=== PATIENT | female | born 1950 | race Caucasian/White ===

== ENCOUNTER 2023-07-09 09:08 | Emergency (ER) | payer MEDICARE, OTHER, SELFPAY ==
[2023-07-09] VITALS (12 sets, daily range): BP systolic 131–162; BP diastolic 81–90; PULSE 98–110; RESP 12–23; TEMP 36.6; O2SAT 100
--- NOTE | ~2023-07-09 | XR_ITS ---
EXAMINATION: XR chest 2V DATE: 07/09/2023 09:49 INDICATION: Palpitations. TECHNIQUE: Frontal and lateral views of the chest were obtained. COMPARISON: None. FINDINGS: There is no pneumonia, pleural effusion, or pneumothorax. The heart size is normal. IMPRESSION: 1. No acute cardiopulmonary disease. Reviewed, dictated and finalized at location A.
--- NOTE | 2023-07-09 09:14 | ED.ARRPALP ---
HPI - Arrhythmia/Palpitations General Chief Complaint: Arrhythmia/Palpitations <Aleksandr Handy APRN - Last Filed: 07/09/23 11:24> Stated Complaint: palpitations <Aleksandr Handy APRN - Last Filed: 07/09/23 11:24> Time Seen by Provider: 07/09/23 09:14 <Aleksandr Handy APRN - Last Filed: 07/09/23 11:24> Source: patient <Aleksandr Handy APRN - Last Filed: 07/09/23 11:24> Mode of arrival: ambulatory <Aleksandr Handy APRN - Last Filed: 07/09/23 11:24> Limitations: no limitations <Aleksandr Handy APRN - Last Filed: 07/09/23 11:24> History of Present Illness HPI narrative: Nissa is a 72-year-old female patient presenting to the emergency room today with complaints of heart palpitations. She reports that this has been going on since June 14 where she has noticed an increase in heart rate on her Fitbit. States she has been under lot of stress at home and not being able to sleep due to her being ill and family related stress due to illnesses. States she is normally a pretty anxious person. No history of hypertension. Patient does not smoke or drink alcohol. Does see Dr. Gorman-rubber molder at [facility] for hyperlipidemia and takes rosuvastatin. Also has history of chronic kidney disease and vitamin-D deficiency. Denies any current chest pain or shortness of breath. States last night when she was trying to sleep she noticed feeling her heart rate beat more on her left side and had pulsatile tinnitus in the left ear. <Aleksandr Handy APRN - Last Filed: 07/09/23 11:24> Related Data Home Medications: Home Medications Medication Instructions Recorded Confirmed bimatoprost 0.01 % eye drops 1 drp EACH EYE DAILY 05/30/22 (Richie) rosuvastatin 5 mg tablet 5 mg PO DAILY 05/30/22 zolpidem 5 mg tablet 5 mg PO ONCE 05/30/22 <Aleksandr Handy APRN - Last Filed: 07/09/23 11:24> Allergies/Adverse Reactions: Allergies Allergy/AdvReac Type Severity Reaction Status Date / Time No Known Allergies Allergy Mild Verified 07/09/23 09:08 <Aleksandr Handy APRN - Last Filed: 07/09/23 11:24> Review of Systems Review of Systems: Pertinent positives per HPI. Patient denies any fever, chills, rash, headache, visual changes, dizziness, cough, runny nose, sore throat, shortness of breath, chest pain, nausea, vomiting, diarrhea, constipation, abdominal pain, or any urinary issues. <Aleksandr Handy APRN - Last Filed: 07/09/23 11:24> [facility] Past Medical History Medical History: Medical History CKD (chronic kidney disease) Hyperlipidemia, unspecified (Unknown) Vitamin D deficiency, unspecified <Aleksandr Handy APRN - Last Filed: 07/09/23 11:24> Surgical History Surgical History: Surgical History History of breast biopsy left 1998 History of lumbar surgery discectomy 1991 History of salpingo-oophorectomy right 08/15/2011 <Aleksandr Handy APRN - Last Filed: 07/09/23 11:24> Family History Family History: Family History Father Cerebrovascular accident Mother Dementia Hypothyroidism Grandparent Breast cancer <Aleksandr Handy APRN - Last Filed: 07/09/23 11:24> Social History Social History: Social History Smoking status: Former smoker Tobacco type: cigarettes Additional smoking assessment comments: Stopped smoking at 21 years Alcohol intake: current Drinks per week: 7 Alcohol use details: small glass of wine every night Substance use: never Substance use type: does not use Do You Feel Safe in your Home?: Yes Lack of Transportation: No Lack of Food: Never True Current Housing: I Have Housing Concerned About
--- NOTE | 2023-07-09 09:24 | ECG_ITS ---
Measurements Intervals [place] Rate: 103 P: 269 W[place]: 138 QRS: -2 QRSD: 81 T: -46 QT: 347 AVG RR: 579 QTc: 407 QTCB: 456 QTCF: 416 Interpretive Statements ECTOPIC ATRIAL TACHYCARDIA NONSPECIFIC ST & T WAVE ABNORMALITY ABNORMAL RHYTHM ECG SEE SCANNED COPY FOR SIGNATURE MTDD
[2023-07-09 09:37] LABS: Basophils Percent Auto 0.6 % (0.2-1.2); Eosinophils Percent Auto 0.8 % (0-4.4); Hematocrit 45.5 % (37.0-47.0); Hemoglobin 15.1 g/dL (12.0-15.0); Immature Granulocyte Absolute 0.01 K/mm3 (0.00-0.031); Immature Granulocyte Percent A 0.3 % (0-0.5); Lymphocytes Absolute Auto 1.31 K/mm3 (0.9-3.2); Lymphocytes Percent Auto 36.3 % (18.3-44.2); Mean Corpuscular HGB Conc 33.2 g/dl (32-36); Mean Corpuscular Volume 90.5 fl (80-100); Mean Platelet Volume 9.1 fl (7.4-10.4); Monocytes Absolute Auto 0.4 K/mm3 (0.1-0.6); Monocytes Percent Auto 11.1 % (2.6-8.5); Neutrophils Absolute Auto 1.8 K/mm3 (1.3-6.7); Neutrophils Percent Auto 50.9 % (45.5-73.1); Platelet Count Result 225 k/mm3 (150-375); Red Blood Count 5.03 M/mm3 (4.2-5.4); Red Cell Distribution Width 12.8 % (11.5-14.5); White Blood Count 3.6 K/mm3 (4.5-10.0)
[2023-07-09 09:49] LABS: INR 0.9; Prothrombin Time 12.5 Seconds (11.1-14.7)
[2023-07-09 09:50] LABS: Partial Thromboplastin Time 24.3 Seconds (22.3-36.8)
[2023-07-09 09:51] LABS: Alanine Aminotransferase 51 U/L (6-35); Albumin Level 4.9 g/dL (3.5-5.1); Alkaline Phosphatase 57 U/L (38-126); Anion Gap 9 mmol/L (4-12); Aspartate Amino Transferase 65 U/L (14-36); Bilirubin,Total 1.1 mg/dL (0.2-1.3); Blood Urea Nitrogen 17 mg/dL (7-17); Calcium 11.3 mg/dL (8.4-10.2); Carbon Dioxide 24 mmol/L (22-30); Chloride 109 mmol/L (98-107); Estimated CRCL calculation 53 ml/min; Estimated Glomerular Filt Rate > 60; Glucose 99 mg/dL (65-110); Sodium 142 mmol/L (137-145)
[2023-07-09 10:03] LABS: NT Pro B Type Natriuretic Pept 104 pg/mL (19.9-100); Troponin I < 0.012 ng/mL (0.000-0.034)
[2023-07-09 10:06] LABS: D Dimer 0.47 ug/mL (<0.48)
== END 2023-07-09 11:30 | disposition home or self-care (01) ==
PROVIDERS: Emergency Provider Nurse Practitioner Family; PCP Family Medicine
DX: R00.0 Tachycardia, unspecified (principal); F43.9 Reaction to severe stress, unspecified; F41.9 Anxiety disorder, unspecified; R00.2 Palpitations; N18.9 Chronic kidney disease, unspecified; E78.5 Hyperlipidemia, unspecified; E55.9 Vitamin D deficiency, unspecified; Z87.891 Personal history of nicotine dependence; Z90.79 Acquired absence of other genital organ(s); Z90.721 Acquired absence of ovaries, unilateral
CPT/HCPCS: 36415; 71046; 80053; 83880; 84484; 85025; 85380; 85610; 85730; 93005; 99284